=== PATIENT | female | born 1960 | race African-American/Black ===

== ENCOUNTER 2018-01-10 07:44 | Inpatient (IN) | payer MEDICAID ==
[~2018-01-10] VITALS: Ht 167.6 cm; Wt 91.8 kg
--- NOTE | ~2018-01-10 | CN ---
PATIENT NAME:ROSSANA HENRY MEDICAL RECORD: [id number] : 56 LOCATION:[id number] ADMIT DATE: 01/10/18 ACCOUNT: [id number] CONSULTING PHYSICIAN: JAMES RIVERA MD REFERRING PHYSICIAN: NAKITA MILLER MD DATE OF CONSULTATION: 01/10/2018 Pulmonary Consultation CONSULT REQUESTING PHYSICIAN: Nakita Miller MD REASON FOR CONSULTATION: Pneumonia, right lower lobe and right pleural effusion. HISTORY OF PRESENT ILLNESS: Ms. Henry is a 57-year-old -[place] female who is transferred from outside facility, admitted with worsening shortness of breath for the last 2 weeks. She was running some low-grade fever. She is coughing with scant yellowish color sputum production. She has pleuritic type of chest pain on the right. She is also having worsening shortness of breath. The patient was transferred to [facility] for advanced care. The patient does have a history of CA of the breast as well as CA of the lung. She is status post radiation and chemotherapy. REVIEW OF SYSTEMS: Mainly in the history of present illness. PAST MEDICAL HISTORY: 1. COPD. 2. Chronic hypoxic respiratory failure. 3. History of cancer of the lung. 4. History of cancer of the breast. 5. History of transient ischemic attack. PAST SURGICAL HISTORY: 1. Hysterectomy. 2. Rotator cuff surgery. ALLERGIES: SHE IS ALLERGIC TO PENICILLIN AND OXYCODONE. PRESENT MEDICATIONS: On [employer] is reviewed. PERSONAL AND SOCIAL HISTORY: The patient is still an everyday smoker. She is a nondrinker. FAMILY HISTORY: Significant for cardiovascular disease and cancer. PHYSICAL EXAMINATION: GENERAL: Now, the patient is lying comfortably. She is not in acute distress. VITAL SIGNS: The blood pressure is 150/84, pulse is 89, respiration 20, temperature is 99, SpO2 is 92% on 3 liters nasal cannula. HEENT: Conjunctivae are pink. Sclerae are not icteric. NECK: Supple, no JVD. CHEST: There are crackles on the right side. Wheeze on forceful expiration. HEART: Rhythm regular, normal sound. There is grade II/ systolic murmur. ABDOMEN: Soft, bowel sounds present. No hepatosplenomegaly. RECTAL: Deferred. CONSULT REPORT [id number] ROSSANA HENRY EXTREMITIES: No cyanosis, no clubbing, no pedal edema. SKIN: Warm, normal turgor. CENTRAL NERVOUS SYSTEM: The patient is awake and alert. There is no obvious cranial nerve abnormality. The gait was not tested. DIAGNOSTIC STUDIES: Chest radiograph, there are right lower lobe infiltrate with right pleural effusion. OTHER LABORATORY DATA: CBC: WBC is 9.4, hemoglobin 11.1, hematocrit 34.8, platelet count 378. Chemistry: Sodium 139, potassium 4.6, BUN is 9, creatinine 0.6. IMPRESSION: 1. Qzrqa-[id number]-wlyjqox hypoxic respiratory failure. 2. Pneumonia, right lower lobe, most likely community-acquired pneumonia. 3. Right pleural effusion, possible parapneumonic. Doubt malignant with a history of CA of the lung. 4. Acute exacerbation of chronic obstructive pulmonary disease. 5. Pleurisy. 6. Tobacco dependence syndrome. 7. History of CA of the lung, status post radiation and chemotherapy. 8. History of CA of the breast. RECOMMENDATION: Continue Levaquin. I will add Rocephin. Start methylprednisolone IV, albuterol/ipratropium nebulizer, Brovana and budesonide nebulizer. Check alpha 1 level. Follow up labs and chest radiograph in the morning. Dr. Miller, thank you for involving me in the care of Ms. Henry. I will check CT scan of the chest tomorrow a.m. 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
[2018-01-10 07:50] VITALS: BP 150/84; Ht 167.6 cm; Wt 91.8 kg
[2018-01-10] MEDS ORDERED: FUROSEMIDE20 MG PO (08:10)
[2018-01-10] MEDS ORDERED: MINIPRESS2 MG PO (08:11)
[2018-01-10] MEDS ORDERED: BUSPAR10 MG PO (08:12)
[2018-01-10] MEDS ORDERED: LATUDA40 MG PO (08:12)
[2018-01-10] MEDS ORDERED: BUPROPION HCL200 M1 PO (08:13)
[2018-01-10] MEDS ORDERED: COZAAR50 MG PO (08:14)
[2018-01-10 09:55] LABS: BASOPHILS 0.1 % (0-2); EOSINOPHILS 0 % (0-7); HEMATOCRIT 34.8 % (36.0-48.0); HEMOGLOBIN 11.1 g/dL (12-16); IMMATURE GRANULOCYTES 0.2 % (0-5); LYMPHOCYTES 4.5 % (15-50); MCH 25.5 pg (26.0-34.0); MCHC 31.9 g/dL (31.0-37.0); MEAN PLATELET VOLUME 9.4 fL (7.4-10.4); MONOCYTES 1.1 % (2-11); NEUTROPHILS 94.1 % (40-80); PLATELET COUNT 378 10x3/uL (130-400); RBC 4.35 10x6/uL (4.00-5.40); RDW 16.5 % (11.5-14.5); WBC 9.4 10x3/uL (4.8-10.8)
[2018-01-10 10:16] LABS: ALBUMIN 3.2 g/dL (3.4-5.0); ALKALINE PHOSPHATASE 72 U/L (46-116); ALT (SGPT) 13 U/L (10-68); CALC OSMOLALITY 278 mosm/kg (275-300); CALCIUM 9.9 mg/dL (8.5-10.1); CARBON DIOXIDE 29.3 mmol/L (21.0-32.0); CHLORIDE - SERUM 103 mmol/L (98-107); CREATININE - SERUM 0.6 mg/dL (0.6-1.3); GLUCOSE 132 mg/dL (74-106); POTASSIUM - SERUM 4.6 mmol/L (3.5-5.1); PRO BNP 328 pg/mL (0-125); PROTEIN - SERUM 7.9 g/dL (6.4-8.2); SODIUM 139 mmol/L (136-145); UREA NITROGEN 9 mg/dL (7-18); eGFR NON AFRICAN AMERICAN > 90 mL/min (90-120)
[2018-01-10 13:40] VITALS: BP 148/107
[2018-01-10 20:00] VITALS: BP 119/73
[2018-01-10] MEDS ORDERED: HYDROCODONE-APA1 TAB PO (20:30)
[2018-01-11 04:00] VITALS: BP 127/73
[2018-01-11 05:42] LABS: BASOPHILS 0 % (0-2); EOSINOPHILS 0 % (0-7); HEMATOCRIT 32.3 % (36.0-48.0); HEMOGLOBIN 10.1 g/dL (12-16); IMMATURE GRANULOCYTES 0.3 % (0-5); LYMPHOCYTES 3.2 % (15-50); MCH 25.1 pg (26.0-34.0); MCHC 31.3 g/dL (31.0-37.0); MCV 80.1 fL (80.0-100.0); MEAN PLATELET VOLUME 9.7 fL (7.4-10.4); MONOCYTES 5.5 % (2-11); PLATELET COUNT 344 10x3/uL (130-400); RBC 4.03 10x6/uL (4.00-5.40); RDW 16.5 % (11.5-14.5); WBC 11.1 10x3/uL (4.8-10.8)
[2018-01-11 06:13] LABS: ALKALINE PHOSPHATASE 64 U/L (46-116); ALT (SGPT) 11 U/L (10-68); CALC OSMOLALITY 284 mosm/kg (275-300); CALCIUM 9.5 mg/dL (8.5-10.1); CARBON DIOXIDE 30.1 mmol/L (21.0-32.0); CHLORIDE - SERUM 102 mmol/L (98-107); CREATININE - SERUM 0.7 mg/dL (0.6-1.3); POTASSIUM - SERUM 4.8 mmol/L (3.5-5.1); PROTEIN - SERUM 7.3 g/dL (6.4-8.2); SODIUM 141 mmol/L (136-145); UREA NITROGEN 10 mg/dL (7-18); eGFR NON AFRICAN AMERICAN > 90 mL/min (90-120)
[2018-01-11 06:14] LABS: GLUCOSE 180 mg/dL (74-106)
[2018-01-11 09:23] VITALS: BP 151/84
[2018-01-11 14:42] VITALS: BP 143/80
[2018-01-11 15:17] LABS: % SATURATION 7 % (15-55); IRON 21 ug/dl (35-150); TOTAL IRON BIND CAPACITY 266 ug/dl (260-445); UNSAT IRON BIND CAPACITY 245 ug/dl (150-375)
[2018-01-11 17:59] VITALS: BP 145/72; BP 148/88
[2018-01-11 21:36] VITALS: BP 155/78
[2018-01-12 04:54] VITALS: BP 164/67
[2018-01-12 06:04] LABS: BASOPHILS 0 % (0-2); EOSINOPHILS 0 % (0-7); HEMATOCRIT 32.2 % (36.0-48.0); HEMOGLOBIN 10.1 g/dL (12-16); IMMATURE GRANULOCYTES 0.2 % (0-5); LYMPHOCYTES 2.8 % (15-50); MCHC 31.4 g/dL (31.0-37.0); MCV 79.7 fL (80.0-100.0); MEAN PLATELET VOLUME 9.7 fL (7.4-10.4); PLATELET COUNT 375 10x3/uL (130-400); RBC 4.04 10x6/uL (4.00-5.40); RDW 16.5 % (11.5-14.5); WBC 12.9 10x3/uL (4.8-10.8)
[2018-01-12 06:55] LABS: ALBUMIN 2.9 g/dL (3.4-5.0); ALKALINE PHOSPHATASE 50 U/L (46-116); ALT (SGPT) 10 U/L (10-68); BILIRUBIN - TOTAL 0.09 mg/dL (0.2-1.3); CALC OSMOLALITY 285 mosm/kg (275-300); CALCIUM 9.3 mg/dL (8.5-10.1); CARBON DIOXIDE 33.6 mmol/L (21.0-32.0); CHLORIDE - SERUM 102 mmol/L (98-107); CREATININE - SERUM 0.6 mg/dL (0.6-1.3); GLUCOSE 123 mg/dL (74-106); PROTEIN - SERUM 7.3 g/dL (6.4-8.2); SODIUM 143 mmol/L (136-145); UREA NITROGEN 13 mg/dL (7-18); eGFR NON AFRICAN AMERICAN > 90 mL/min (90-120)
[2018-01-12 08:14] VITALS: BP 125/69
[2018-01-12 08:21] LABS: FOLATE (FOLIC ACID) - SERUM 8.8 ng/mL (>3.0)
[2018-01-12 12:39] VITALS: BP 140/77
[2018-01-12 16:15] VITALS: BP 139/81
[2018-01-12 20:06] VITALS: BP 155/89
[2018-01-13] VITALS (10 sets, daily range): BP systolic 124–156; BP diastolic 72–85
[2018-01-13 05:56] LABS: BASOPHILS 0 % (0-2); EOSINOPHILS 0 % (0-7); HEMOGLOBIN 11.4 g/dL (12-16); IMMATURE GRANULOCYTES 0.4 % (0-5); LYMPHOCYTES 3.5 % (15-50); MCH 25.2 pg (26.0-34.0); MCHC 31.7 g/dL (31.0-37.0); MCV 79.6 fL (80.0-100.0); MEAN PLATELET VOLUME 9.7 fL (7.4-10.4); MONOCYTES 6.3 % (2-11); NEUTROPHILS 89.8 % (40-80); PLATELET COUNT 381 10x3/uL (130-400); RBC 4.52 10x6/uL (4.00-5.40); RDW 16.4 % (11.5-14.5); WBC 13.4 10x3/uL (4.8-10.8)
[2018-01-13 06:04] LABS: APTT 28.8 SECONDS (22.8-39.4); INR 1.15 (0.85-1.17); PROTIME 14.3 SECONDS (11.6-15.0)
[2018-01-13 06:09] LABS: ALBUMIN 3.2 g/dL (3.4-5.0); ALKALINE PHOSPHATASE 59 U/L (46-116); CALCIUM 9.6 mg/dL (8.5-10.1); CARBON DIOXIDE 29.6 mmol/L (21.0-32.0); CHLORIDE - SERUM 103 mmol/L (98-107); CREATININE - SERUM 0.7 mg/dL (0.6-1.3); GLUCOSE 116 mg/dL (74-106); LDH 176 U/L (81-234); PROTEIN - SERUM 7.8 g/dL (6.4-8.2); SODIUM 142 mmol/L (136-145); eGFR NON AFRICAN AMERICAN > 90 mL/min (90-120)
[2018-01-13 06:13] LABS: ALT (SGPT) 19 U/L (10-68); CALC OSMOLALITY 285 mosm/kg (275-300); UREA NITROGEN 18 mg/dL (7-18)
[2018-01-13 14:36] LABS: PROTEIN - BODY FLUID 4.7 G/DL
[2018-01-13 16:07] LABS: MACROPHAGES BF 24 %; MESOTHELIALS BF 13 %; NEUT - BF 47 %
[2018-01-14 04:25] VITALS: BP 154/95
[2018-01-14 06:18] LABS: BASOPHILS 0 % (0-2); EOSINOPHILS 0 % (0-7); HEMATOCRIT 34.4 % (36.0-48.0); HEMOGLOBIN 11.3 g/dL (12-16); IMMATURE GRANULOCYTES 0.3 % (0-5); LYMPHOCYTES 6.8 % (15-50); MCH 25.9 pg (26.0-34.0); MCHC 32.8 g/dL (31.0-37.0); MCV 78.7 fL (80.0-100.0); MEAN PLATELET VOLUME 9.2 fL (7.4-10.4); MONOCYTES 12.9 % (2-11); PLATELET COUNT 336 10x3/uL (130-400); RBC 4.37 10x6/uL (4.00-5.40); RDW 16.4 % (11.5-14.5)
[2018-01-14 06:46] LABS: WBC 9.7 10x3/uL (4.8-10.8)
[2018-01-14 06:51] LABS: ALBUMIN 2.7 g/dL (3.4-5.0); ALKALINE PHOSPHATASE 51 U/L (46-116); ALT (SGPT) 23 U/L (10-68); CALC OSMOLALITY 281 mosm/kg (275-300); CALCIUM 8.9 mg/dL (8.5-10.1); CARBON DIOXIDE 30.2 mmol/L (21.0-32.0); CHLORIDE - SERUM 104 mmol/L (98-107); CREATININE - SERUM 0.7 mg/dL (0.6-1.3); GLUCOSE 94 mg/dL (74-106); PROTEIN - SERUM 6.7 g/dL (6.4-8.2); SODIUM 141 mmol/L (136-145); UREA NITROGEN 14 mg/dL (7-18); eGFR NON AFRICAN AMERICAN > 90 mL/min (90-120)
[2018-01-14 08:59] VITALS: BP 137/89
[2018-01-14 09:18] LABS: ANA REFLEX - DIRECT Negative (Negative)
[2018-01-14 12:48] VITALS: BP 125/82
[2018-01-14 16:15] VITALS: BP 150/90
[2018-01-14 18:11] LABS: ACID FAST SMEAR Negative (()); AFB SPECIMEN PROCESSING Concentration (())
[2018-01-14 19:56] VITALS: BP 150/87
[2018-01-15 04:30] VITALS: BP 140/91
[2018-01-15 06:21] LABS: BASOPHILS 0 % (0-2); EOSINOPHILS 0.1 % (0-7); HEMATOCRIT 36.2 % (36.0-48.0); HEMOGLOBIN 11.5 g/dL (12-16); IMMATURE GRANULOCYTES 0.3 % (0-5); LYMPHOCYTES 4.2 % (15-50); MCH 24.7 pg (26.0-34.0); MCHC 31.8 g/dL (31.0-37.0); MCV 77.7 fL (80.0-100.0); MONOCYTES 8.8 % (2-11); NEUTROPHILS 86.6 % (40-80); PLATELET COUNT 382 10x3/uL (130-400); RBC 4.66 10x6/uL (4.00-5.40); RDW 16.4 % (11.5-14.5)
[2018-01-15 06:24] LABS: WBC 13.7 10x3/uL (4.8-10.8)
[2018-01-15 06:36] LABS: ALBUMIN 2.9 g/dL (3.4-5.0); ALKALINE PHOSPHATASE 54 U/L (46-116); ALT (SGPT) 25 U/L (10-68); CALC OSMOLALITY 283 mosm/kg (275-300); CALCIUM 9.2 mg/dL (8.5-10.1); CARBON DIOXIDE 29.7 mmol/L (21.0-32.0); CHLORIDE - SERUM 102 mmol/L (98-107); CREATININE - SERUM 0.7 mg/dL (0.6-1.3); GLUCOSE 130 mg/dL (74-106); POTASSIUM - SERUM 4.3 mmol/L (3.5-5.1); PROTEIN - SERUM 6.5 g/dL (6.4-8.2); SODIUM 141 mmol/L (136-145); UREA NITROGEN 15 mg/dL (7-18); eGFR NON AFRICAN AMERICAN > 90 mL/min (90-120)
[2018-01-15 09:52] VITALS: BP 128/79
[2018-01-15] MEDS ORDERED: LEVAQUIN750 MG PO (09:53)
[2018-01-15] MEDS ORDERED: NICODERM C1 PATCH .2 TRANSDERM (09:53)
[2018-01-15] MEDS ORDERED: OMNICEF300 MG PO (09:53)
[2018-01-15] MEDS ORDERED: PROTONIX40 MG PO (09:55)
[2018-01-15 13:27] VITALS: BP 165/85
[2018-01-18 13:14] LABS: FUNGUS STAIN Final report (())
[2018-02-10 07:31] LABS: FUNGUS MYCOLOGY CULTURE Final report (())
== END 2018-01-15 13:10 | disposition home or self-care (01) | DRG 193 ==
LOC: D.MS 07:44
PROVIDERS: Family Medicine; General Practice; Internal Medicine Nephrology; Internal Medicine Pulmonary Disease
PROC: 0W993ZZ Drainage of Right Pleural Cavity, Percutaneous Approach (ICD-10-PCS; principal; 2018-01-13 08:30)
DX: J18.1 Lobar pneumonia, unspecified organism (principal); J96.21 Acute and chronic respiratory failure with hypoxia; J44.0 Chronic obstructive pulmonary disease with (acute) lower respiratory infection; J90 Pleural effusion, not elsewhere classified; F17.203 Nicotine dependence unspecified, with withdrawal; J44.1 Chronic obstructive pulmonary disease with (acute) exacerbation; D50.9 Iron deficiency anemia, unspecified; Z85.3 Personal history of malignant neoplasm of breast; Z85.118 Personal history of other malignant neoplasm of bronchus and lung; Z90.11 Acquired absence of right breast and nipple